=== PATIENT | male | born 1940 | race Caucasian/White ===

== ENCOUNTER 2025-03-14 08:02 | Inpatient (IN) | payer MEDICARE, OTHER ==
[~2025-03-14] VITALS: Ht 165.1 cm; Wt 62.6 kg
[2025-03-14] MEDS: IV NS 0.9% 1,000 ML BAG IV ONE (08:22)
[2025-03-14 08:30] LABS: PLATELET COUNT (AUTO) 134 K/uL (150-450); RED BLOOD CELL COUNT(AUTO) 4.55 MIL/uL (4.5-6.0); RED CELL DISTRIBUTION WIDTH 14.4 % (11.5-15.0); WHITE BLOOD COUNT (AUTO) 4.5 K/uL (4.3-11.0)
[2025-03-14] MEDS: PANTOPRAZOLE 80 MG in IV NS 0.9% 100 ML IV ONE (08:39)
[2025-03-14 08:41] LABS: CALCIUM, SERUM 8.3 mg/dL (8.5-10.1); CREATININE 0.9 mg/dL (0.6-1.3); SODIUM SERUM 135 mmol/L (136-145); UREA NITROGEN, BLOOD 15 mg/dL (7-18)
[2025-03-14 08:43] LABS: INR 1.14 (0.91-1.10)
[2025-03-14 08:46] LABS: ASPARTATE AMINOTRANSFERASE 22 U/L (15-37); TOTAL PROTEIN, SERUM 6.6 g/dL (6.4-8.2)
[2025-03-14] MEDS: PANTOPRAZOLE 80 MG in IV NS 0.9% 500 ML IV ONE (08:57)
[2025-03-14] MEDS ORDERED: ALFU10TA10 PO (09:18)
[2025-03-14] MEDS ORDERED: CALC-1276 PO (09:18)
[2025-03-14] MEDS ORDERED: ASPI-1169 PO (09:18)
[2025-03-14] MEDS ORDERED: CHOL500062 PO (09:18)
[2025-03-14] MEDS ORDERED: ATOR20TA PO (09:18)
[2025-03-14] MEDS ORDERED: ESCI5TAB PO (09:18)
[2025-03-14] MEDS ORDERED: APIX5TAB PO (09:18)
[2025-03-14] MEDS ORDERED: vitamin b12 PO (09:18)
[2025-03-14 09:40] VITALS: BP_SYST 123; BP_SYST 128; BP_DIAS 66; BP_DIAS 70; TEMP 96.5; TEMP 97.5; O2SAT 97; O2SAT 99
[2025-03-14] MEDS ORDERED: hydrALAZINE HCL IV 20 MG VIAL IV PRN (10:00)
[2025-03-14] MEDS ORDERED: ACETAMINOPHEN 325 MG TABLET PO PRN (10:00)
[2025-03-14] MEDS ORDERED: ONDANSETRON HCL/PF 4 MG/2 ML VIAL IVP PRN (10:00)
[2025-03-14] MEDS ORDERED: MORPHINE SULFATE INJ 2 MG/ML DISP.SYRIN IV PRN (10:00)
[2025-03-14] MEDS ORDERED: MECLIZINE HCL 12.5 MG TABLET PO PRN (10:30)
[2025-03-14] MEDS: IV NS 0.9% 1,000 ML IV SCH (10:42)
[2025-03-14] MEDS: ASPIRIN 81 MG TAB.CHEW PO SCH (10:42)
[2025-03-14] MEDS: APIXABAN 5 MG TABLET PO SCH (10:46)
[2025-03-14 12:00] VITALS: BP 123/70; TEMP 97.5; O2SAT 99
[2025-03-14 16:00] VITALS: BP 116/68; TEMP 97.7; O2SAT 97
[2025-03-14 16:59] VITALS: BP_SYST 128; BP_SYST 133; BP_SYST 139; BP_DIAS 66; BP_DIAS 68; BP_DIAS 69
[2025-03-14] MEDS: PANTOPRAZOLE 40 MG VIAL IV SCH (17:15)
[2025-03-14] MEDS: POLYETHYLENE GLYCOL 3350 17 GM POWD.PACK PO PRN (19:47)
[2025-03-14 20:00] VITALS: BP 101/65; TEMP 97.9; O2SAT 97
[2025-03-15] VITALS: BP 138/70; TEMP 97.3; O2SAT 98
[2025-03-15 04:00] VITALS: BP 136/71; TEMP 97.3; O2SAT 98
[2025-03-15 05:50] LABS: PLATELET COUNT (AUTO) 134 K/uL (150-450); RED BLOOD CELL COUNT(AUTO) 4.27 MIL/uL (4.5-6.0); RED CELL DISTRIBUTION WIDTH 14.3 % (11.5-15.0); WHITE BLOOD COUNT (AUTO) 4.0 K/uL (4.3-11.0)
[2025-03-15 06:17] LABS: ASPARTATE AMINOTRANSFERASE 18.0 U/L (15-37); CALCIUM, SERUM 8.0 mg/dL (8.5-10.1); CREATININE 0.6 mg/dL (0.6-1.3); PHOSPHORUS 2.4 mg/dL (2.5-4.9); SODIUM SERUM 140.0 mmol/L (136-145); TOTAL PROTEIN, SERUM 5.7 g/dL (6.4-8.2); UREA NITROGEN, BLOOD 10.0 mg/dL (7-18)
[2025-03-15 08:00] VITALS: BP 133/76; TEMP 98.4; O2SAT 98
[2025-03-15] MEDS: ESCITALOPRAM OXALATE (10 MG) 10 MG TABLET PO SCH (08:15)
[2025-03-15] MEDS: ATORVASTATIN 40 MG TABLET PO SCH (08:16)
[2025-03-15 12:00] VITALS: BP 133/76; TEMP 98.4; O2SAT 98
[2025-03-15] MEDS ORDERED: K PHOS NEUTRAL 250 MG TABLET PO ONE (16:00)
[2025-03-16 02:10] LABS: HEPATITIS B CORE AB, IgM Negative (Negative); HEPATITIS B CORE AB, TOTAL Negative (Negative)
== END 2025-03-15 14:53 | disposition home or self-care (01) | DRG 149 ==
LOC: ER 08:11 → TELE1 09:30
PROVIDERS: ADMIT Internal Medicine; ATTEND Internal Medicine
DX: H81.10 Benign paroxysmal vertigo, unspecified ear (principal); E78.00 Pure hypercholesterolemia, unspecified; Z79.01 Long term (current) use of anticoagulants; E78.5 Hyperlipidemia, unspecified; Z86.718 Personal history of other venous thrombosis and embolism; Z85.038 Personal history of other malignant neoplasm of large intestine; Z90.49 Acquired absence of other specified parts of digestive tract; Z79.82 Long term (current) use of aspirin; Z79.899 Other long term (current) drug therapy
CPT/HCPCS: 36415; 70450-TC; 70551-TC; 71045-TC; 80048-TC; 80053-TC; 80076-TC; 83605-TC; 83735-TC; 84100-TC; 84484-TC; 85025-TC; 85027-TC; 85730-TC; 86704; 86705; 86707; 86803; 86850-TC; 87340; 87350; 93970-TC; 97112-TC; 97116-TC; 97530-TC; A4223; G0378; J2470; J7030; J7040